=== PATIENT | male | born 1965 | race Caucasian/White ===

== ENCOUNTER 2023-02-16 09:34 | Outpatient (OUT) | payer OTHER, SELFPAY ==
--- NOTE | 2023-02-16 | XR_ITS ---
The [address] [address] Patient Name: KARISHMA BHATT MRN: [id number] date: 1965 Sex: M Assigned Patient Location: [facility] Current Patient Location: [facility] Accession/Order Number: [id number] Exam Date: 02/16/2023 10:00 Report Date: 02/16/2023 11:09 At the request of: DENY FLORES Procedure: XR ankle THU min 3V Exam: Radiographs: XR ankle THU min 3V, XR foot THU min 3V Reason for exam: BILATERAL ANKLE PAIN Comparison: None XR/XR ankle THU min 3V IMPRESSION: Right ankle soft tissue swelling. Right ankle is otherwise unremarkable. Left ankle soft tissue swelling. Left ankle is otherwise unremarkable. Mild degenerative changes throughout the right foot. Pes planus. Right foot is otherwise unremarkable. Mild degenerative changes throughout the left foot. Pes planus. Left foot is otherwise unremarkable. Electronically authenticated by: JUSTYNA RIVERA Date: 02/16/2023 11:09
--- NOTE | 2023-02-16 | XR_ITS ---
The [address] [address] Patient Name: KARISHMA BHATT MRN: [id number] date: 1965 Sex: M Assigned Patient Location: [facility] Current Patient Location: [facility] Accession/Order Number: [id number] Exam Date: 02/16/2023 10:00 Report Date: 02/16/2023 11:09 At the request of: DENY FLORES Procedure: XR foot THU min 3V Exam: Radiographs: XR ankle THU min 3V, XR foot THU min 3V Reason for exam: BILATERAL ANKLE PAIN Comparison: None XR/XR foot THU min 3V IMPRESSION: Right ankle soft tissue swelling. Right ankle is otherwise unremarkable. Left ankle soft tissue swelling. Left ankle is otherwise unremarkable. Mild degenerative changes throughout the right foot. Pes planus. Right foot is otherwise unremarkable. Mild degenerative changes throughout the left foot. Pes planus. Left foot is otherwise unremarkable. Electronically authenticated by: JUSTYNA RIVERA Date: 02/16/2023 11:09
== END 2023-02-16 09:35 | disposition home or self-care (01) ==
LOC: RAD 09:35
PROVIDERS: Visit Provider Podiatrist Foot & Ankle Surgery
DX: M25.571 Pain in right ankle and joints of right foot (principal); M25.572 Pain in left ankle and joints of left foot
CPT/HCPCS: 73610; 73630

== ENCOUNTER 2023-02-21 09:08 | Outpatient (OUT) | payer OTHER, SELFPAY ==
--- NOTE | 2023-02-21 09:26 | CT_ITS ---
The [address] [address] Patient Name: KARISHMA BHATT MRN: [id number] date: 1965 Sex: M Assigned Patient Location: CT Current Patient Location: CT Accession/Order Number: [id number] Exam Date: 02/21/2023 09:55 Report Date: 02/21/2023 11:50 At the request of: DENY FLORES Procedure: CT foot RT wo con EXAM: CT foot RT wo con, [id number] HISTORY: Right Metatarsal Joint Arthritis TECHNIQUE: Helical CT images of the right foot were obtained without contrast. Multiplanar reformats were generated at the scanner. Dose reduction technique used: Automated exposure control and/or adjustment of the mA and/or kV according to patient size and/or use of iterative reconstruction technique. COMPARISON: Bilateral foot and ankle x-rays 02/16/2023. FINDINGS: No acute fracture, dislocation, or suspicious osseous lesion. Mild osteoarthritis of the ankle mortise, subtalar joint, and talonavicular articulation. Minimal osteoarthritis at the articulation of the navicular with the medial and middle cuneiforms as well as at the articulation of the calcaneus and cuboid. Minimal osteophytosis of the first metatarsophalangeal joint. Large plantar calcaneal spur. An os trigonum is present. No acute osseous abnormality of the visualized soft tissues. CT/CT foot RT wo con IMPRESSION: 1. 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 2. No acute osseous abnormality. Electronically authenticated by: STEVE SCANLON Date: 02/21/2023 11:50
== END 2023-02-21 09:09 | disposition home or self-care (01) ==
LOC: CT 09:14
PROVIDERS: PCP Family Medicine; Visit Provider Podiatrist Foot & Ankle Surgery
DX: M19.071 Primary osteoarthritis, right ankle and foot (principal)
CPT/HCPCS: 73700